=== PATIENT | female | born 1985 | race Caucasian/White ===

== ENCOUNTER 2018-08-30 13:54 | Emergency (ER) | payer OTHER ==
[~2018-08-30] VITALS: Ht 160 cm; Wt 136.5 kg
[2018-08-30 14:03] VITALS: Ht 160 cm; Wt 136.5 kg
[2018-08-30 16:25] VITALS: BP 142/83
== END 2018-08-30 16:25 | disposition home or self-care (01) ==
LOC: ED 13:54
DX: J45.901 Unspecified asthma with (acute) exacerbation (principal); R07.89 Other chest pain; K21.9 Gastro-esophageal reflux disease without esophagitis; Z88.1 Allergy status to other antibiotic agents
CPT/HCPCS: Q0092

== ENCOUNTER 2019-11-20 12:33 | Emergency (ER) | payer OTHER ==
[~2019-11-20] VITALS: Ht 160 cm; Wt 137.4 kg
[2019-11-20 12:40] VITALS: Ht 160 cm; Wt 137.4 kg
[2019-11-20 13:19] LABS: BASOPHIL % 0.3 % (0-2); PLATELET COUNT 267 x10^3mcL (130-400); RED CELL DISTRIBUTION WIDTH 16.7 % (11.5-14.5)
[2019-11-20 13:20] LABS: CALCIUM 8.1 mg/dL (8.5-10.1); CARBON DIOXIDE 27.2 mmol/L (21-32); CHLORIDE SERUM 106 mmol/L (98-107); CREATININE SERUM 0.8 mg/dL (0.6-1.0); GFR1 > 60 mL/min; GLUCOSE SERUM 165 mg/dL (74-106); POTASSIUM SERUM 4.2 mmol/L (3.5-5.1); SODIUM SERUM 138 mmol/L (136-145)
[2019-11-20 13:25] LABS: ALKALINE PHOSPHATASE 67 U/L (46-116); ALT/SGPT 47 U/L (14-59); AMYLASE 40 U/L (25-115); AST/SGOT 28 U/L (15-37); BILIRUBIN TOTAL 0.2 mg/dL (0.20-1.00); LIPASE 108 IU/L (73-393); TOTAL PROTEIN, SERUM 7.4 g/dL (6.4-8.2)
[2019-11-20 13:29] LABS: ALBUMIN 3.3 g/dL (3.4-5.0)
[2019-11-20 13:51] LABS: UA SPECIFIC GRAVITY 1.025 (1.005-1.035); microscopic required? YES; urine erythrocyte 3+ (NEGATIVE)
[2019-11-20 17:02] VITALS: BP 119/76
== END 2019-11-20 17:02 | disposition home or self-care (01) ==
LOC: ED 12:33
PROVIDERS: Emergency Medicine
DX: R10.811 Right upper quadrant abdominal tenderness (principal); R11.2 Nausea with vomiting, unspecified; R05 Cough; J45.909 Unspecified asthma, uncomplicated; I10 Essential (primary) hypertension; E11.9 Type 2 diabetes mellitus without complications; E78.00 Pure hypercholesterolemia, unspecified; Z88.1 Allergy status to other antibiotic agents
CPT/HCPCS: J1885; J2405; J3010; Q0092